=== PATIENT | male | born 1965 | race Caucasian/White ===

== ENCOUNTER → 2024-01-28 19:37 | Outpatient (REF) | payer OTHER, SELFPAY | LOC: MRI 3T 19:37 | PROVIDERS: ATTENDING PHYSICIAN Specialist; FAMILY PHYSICIAN Internal Medicine Geriatric Medicine | DX: E27.8 Other specified disorders of adrenal gland (principal); N28.89 Other specified disorders of kidney and ureter | CPT/HCPCS: 74183; A9575 ==

== ENCOUNTER 2025-07-22 03:29 | Emergency (ER) | payer OTHER, SELFPAY ==
[2025-07-22 03:34] VITALS: BP 162/94
[2025-07-22 03:50] VITALS: BMI 37.3
[2025-07-22 05:17] LABS: Hematocrit 58.6 % (39.0-52.0); Hemoglobin 18.6 g/dL (13.0-18.0); Mean Corp Hgb Conc. 31.7 g/dL (33.0-37.0); Mean Corpuscular Volume 88.4 fL (80.0-94.0); Nucleated Red Blood Cells % 0 % (-); Platelet Count 175 10^3/uL (130-400); Red Cell Dist. Width 16.8 % (11.5-14.5)
--- NOTE | 2025-07-22 05:17 | ED.GENMED ---
History of Present Illness
<Flaquita Rodriguez PA-C - Last Filed: 07/22/25 23:06>
General
Chief Complaint: Throat Problem
Source: patient
Exam Limitations: none
Time Seen by Provider: 07/22/25 04:22
Nursing documentation reviewed up to this point in time: agreed with
History of Present Illness
History of Present Illness:
60-year-old male with a past medical history of A-fib on Eliquis, history of dilated aortic root, hypertension, hyperlipidemia, presents to the ER today with concerns of upper respiratory and cold-like symptoms for the past few days. The patient
was taking NyQuil initially with some relief. What prompted his visit today was that at around 2:30 AM, he woke up with a sensation of his throat closing and felt like he had a lump in his throat. He had trouble speaking at the time and trouble
swallowing. He reported also that he had pain at the time. He subsequently took Tylenol and Benadryl and started to feel better but reports that lump sensation in the throat persist and he has a persistent sensation of fullness. No shortness of
breath or chest pain at this time. He is able to tolerate oral intake at this time. He denies any exposure to allergens or any new medications. He denies any swelling of the lips or tongue. He denies any sick contacts. He denies any fevers at
home. He had prior tonsillectomy as a child. He also admits to postnasal drip and occasional coughing up of mucus. He is reportedly up to date on his vaccinations other than this year's flu shot.
Past History
<Flaquita Rodriguez PA-C - Last Filed: 07/22/25 23:06>
Past History
ED Past Medical History: Arrthythmia, HTN, Hypercholesterolemia and Other (gout)
Social History
Tobacco: Non-smoker
Personal:
Review of Systems
<Flaquita Rdoriguez PA-C - Last Filed: 07/22/25 23:06>
Review of Systems
All Other Systems: ROS reviewed and negative except as documented in HPI and ROS
Phy Exam
<Flaquita Rodriguez PA-C - Last Filed: 07/22/25 23:06>
Physical Exam
Physical Exam:
General: Patient is well appearing and in no acute distress; non-toxic
Skin: Warm and dry, no rashes or lesions
Head: Normocephalic, atraumatic
Eyes: Sclera non-icteric. EOMs intact.
Mouth: Uvula midline, posterior pharyngeal erythema and swelling, R>L. Surgically absent tonsils.
No trismus.
Cardiac: Regular rate and rhythm, no murmurs
Peripheral Vascular: No lower extremity swelling or edema, brisk capillary refill
Pulm: Normal respiratory effort, scattered rhonchi heard bilaterally
Neuro: CN II-XII intact, no focal neurologic deficits.
Psychiatric: Appropriate mood and affect.
Course
<MARIELLA Bynum Last Filed: 07/22/25 23:06>
Orders/Labs/Results
Orders:
Orders
07/22/25 05:02
CR Chest - 2 Views Urgent
Comment:
Reason For Exam: COUGH, intermittent sob
07/22/25 05:05
COVID-19 Antigen Urgent
Source: Nasal Swab
Complete Blood Count/With Diff Urgent
Comprehensive Metabolic Panel Urgent
Influenza A+B Rapid Molecular Urgent
TOVA Source: Nasal Swab
Specimen Description:
07/22/25 05:39
Rapid Strep Group A Urgent
TOVA Source: Throat/Pharynx
Specimen Description:
Date Specimen was Collected: 07/22/25
Time Specimen was Collected: 05:31
07/22/25 06:12
CT Neck With Iv Contrast Urgent
Comment:
Reason For Exam: right pharyngeal fullness,dysphagia
07/22/25 06:26
Dexamethasone Sod Phosphate [Decadron] 10 mg IV NOW STA
Abnormal Lab Results
07/22/25
05:05
RBC 6.63 H 10^6/uL
(4.70-6.10)
Hgb 18.6 H g/dL
(13.0-18.0)
Hct 58.6 H %
(39.0-52.0)
MCHC 31.7 L g/dL
(33.0-37.0)
RDW 16.8 H %
(11.5-14.5)
Absolute Neuts (auto) 6.6 H 10^3/uL
(1.4-6.5)
Absolute Monos (auto) 0.9 H 10^3/uL
(0.1-0.6)
Lymphocytes % 20.0 L %
(20.5-51.1)
BUN 28 H mg/dl
(9-20)
Creatinine 1.5 H mg/dL
(0.7-1.3)
Glucose 109 H mg/dl
(70-99)
07/22/25 05:05
07/22/25 05:05
Vital Signs
Initial and Last Documented VS:
Initial Vital Signs
Temp Pulse Resp BP Pulse Ox
97.6 F 64 24 162/94 95
07/22/25 03:34 07/22/25 03:34 07/22/25 03:34 07/22/25 03:34 07/22/25 03:34
Last Documented Vital Signs
Temp Pulse Resp BP Pulse Ox
97.6 F 61 15 129/76 98
07/22/25 03:34 07/22/25 06:54 07/22/25 06:54 07/22/25 06:54 07/22/25 06:54
<Sharon Larsen PA-C - Last Filed: 07/22/25 09:51>
Orders/Labs/Results
Orders:
Orders
07/22/25 05:02
CR Chest - 2 Views Urgent
Comment:
Reason For Exam: COUGH, intermittent sob
07/22/25 05:05
COVID-19 Antigen Urgent
Source: Nasal Swab
Complete Blood Count/With Diff Urgent
Comprehensive Metabolic Panel Urgent
Influenza A+B Rapid Molecular Urgent
TOVA Source: Nasal Swab
Specimen Description:
07/22/25 05:39
Rapid Strep Group A Urgent
TOVA Source: Throat/Pharynx
Specimen Description:
Date Specimen was Collected: 07/22/25
Time Specimen was Collected: 05:31
07/22/25 06:12
CT Neck With Iv Contrast Urgent
Comment:
Reason For Exam: right pharyngeal fullness,dysphagia
07/22/25 06:26
Dexamethasone Sod Phosphate [Decadron] 10 mg IV NOW STA
Abnormal Lab Results
07/22/25
05:05
RBC 6.63 H 10^6/uL
(4.70-6.10)
Hgb 18.6 H g/dL
(13.0-18.0)
Hct 58.6 H %
(39.0-52.0)
MCHC 31.7 L g/dL
(33.0-37.0)
RDW 16.8 H %
(11.5-14.5)
Absolute Neuts (auto) 6.6 H 10^3/uL
(1.4-6.5)
Absolute Monos (auto) 0.9 H 10^3/uL
(0.1-0.6)
Lymphocytes % 20.0 L %
(20.5-51.1)
BUN 28 H mg/dl
(9-20)
Creatinine 1.5 H mg/dL
(0.7-1.3)
Glucose 109 H mg/dl
(70-99)
07/22/25 05:05
07/22/25 05:05
Vital Signs
Initial and Last Documented VS:
Initial Vital Signs
Temp Pulse Resp BP Pulse Ox
97.6 F 64 24 162/94 95
07/22/25 03:34 07/22/25 03:34 07/22/25 03:34 07/22/25 03:34 07/22/25 03:34
Last Documented Vital Signs
Temp Pulse Resp BP Pulse Ox
97.6 F 61 15 129/76 98
07/22/25 03:34 07/22/25 06:54 07/22/25 06:54 07/22/25 06:54 07/22/25 06:54
<Flaquita Rodriguez PA-C - Last Filed: 07/22/25 23:06>
MDM/Problems Addressed
Differential Diagnosis Includes:
ddx include viral syndrome, pneumonia, viral pharyngitis, strep pharyngitis, peritonsillar abscess, retropharyngeal abscess
MDM/Problems Addressed:
60-year-old male with a past medical history of A-fib on Eliquis, history of dilated aortic root, hypertension, hyperlipidemia, presents to the ER today with concerns of upper respiratory and cold-like symptoms for the past few days. He was awoken
today with sensation of fullness in his throat and sensation of swelling. Since has improved but sensation of fullness persists. On exam he has pharyngeal swelling right side more swollen than the left however his uvula is midline, no trismus no
hoarseness to the voice, no anterior cervical lymphadenopathy.Patient seen in conjunction with my ED attending. Will obtain CT scan to rule out abscess collection. Labs reviewed, no leukocytosis noted. Elevated BUN to creatinine ratio noted, will
encourage hydration there is a Decadron to the IV given. Case signed out to Cyndy WOLFF pending CT scan results. Anticipate discharge. Discussed steroid course as an outpatient.
Chronic conditions affecting care:
afib, htn, hlp
<Flaquita Rodriguez PA-C - Last Filed: 07/22/25 23:06>
*Pulse Oximetry
SaO2: 95
Oxygen Mode of Delivery: Room air
Patient hypoxic: no
*Critical Care Note
Total Time (30-74mins, 75-104mins- exclusive of procedures): Not Applicable
<Sharon Larsen PA-C - Last Filed: 07/22/25 09:51>
Update Note
Update Note:
07/22/2025 0735 AM
Received patient in signout pending CT of the neck with IV contrast for
Pharyngitis
His CT of his neck showed mild pharyngitis/tonsillitis without any significant narrowing of his airway or other deep space infections. Patient feels much better after the IV steroids. Will discharge home, likely viral. Follow-up with ENT
encouraged for persistent symptoms. Will hold on additional doses of steroids given the fact that the patient is on Eliquis
ED Attending Note
<Flaquita Rodriguez PA-C - Last Filed: 07/22/25 23:06>
-
Portions of this chart may have been created with voice recognition software.� Occasional wrong word or��sound alike� substitutions may have occurred due to the inherent limitations of voice recognition software.
Discharge Plan
Departure
Patient Disposition: Home (Routine Discharge)
Date of Disposition: 07/22/25
Time of Disposition: 08:19
Patient with high blood pressure during this ER visit?: Yes
Condition: Good
Discharge Problem:
Acute pharyngitis, Acute viral syndrome
Instructions: Sore throat in adults - ED (DC), BLOOD PRESSURE
Prescriptions:
New
prednisone 20 mg tablet
40 mg PO DAILY 5 Days Qty: 10 0RF
No Action
carvedilol 6.25 MG tablet
6.25 mg PO BID
diltiazem HCl [Tiadylt ER] 360 MG capsule,extended release 24 hr
360 mg PO DAILY
allopurinol 100 MG tablet
100 mg PO DAILY
aspirin 81 MG tablet,chewable
81 mg PO DAILY
rosuvastatin 20 MG tablet
20 mg PO DAILY
Benazepril Hcl 40 MG Tablet
40 mg PO DAILY
Semaglutide [Wegovy] 2.4 MG/0.75 ML Pen.Injctr
2.4 mg PO WEEKLY
apixaban [Eliquis] 5 MG tablet
5 mg PO BID Qty: 60 0RF
prednisone 20 mg tablet
60 mg PO DAILY 5 Days Qty: 15 0RF
Referrals:
Shar Higginbotham MD [Active, Otology] - Call in 1-3 days for appt
UNKNOWN,NO INTERVIEW [Family Provider]
Activity Restrictions/Additional Instructions:
YOUR CAT SCAN SHOWS MILD TONSILLITIS/PHARNGITIS WHICH IS LIKELY VIRAL
NO DEEP SPACE INFECTION OR MASSES.
YOU WERE GIVEN A DOSE OF STEROIDS TO HELP WITH INFLAMMATION
OTHERWISE TAKE OVER THE COUNTER MEDICATION TO HELP
DRINK FLUIDS
Please call the attached number to schedule a appointment with ENT. Please follow-up with your primary care provider.
PLEASE RETURN TO THE ER SHOULD YOU DEVELOP SHORTNESS OF BREATH, CHEST PAIN, INABILITY TO TOLERATE ORAL INTAKE, SWELLING OR PAIN IN THE NECK, DIZZINESS, LIGHTHEADEDNESS, OR ANY OTHER SIGNS OR SYMPTOMS WORRISOME TO YOU.
Interventions
Interventions:
*Risk Screen - Suicide Last Done: 07/22/25 03:34
*General Assessment Last Done: 07/22/25 03:34
*Neglect/Abuse Screening Last Done: 07/22/25 03:34
*ED- Fall Risk Assessment Last Done: 07/22/25 03:34
*ED COVID-19 Vaccine History Last Done: 07/22/25 03:34
*ED Influenza Vaccine History Last Done: 07/22/25 03:34
*Nursing Disposition Last Done: 07/22/25 08:39
ED-EENT Assessment Last Done: 07/22/25 06:54
ED- Pulmonary Assessment Last Done: 07/22/25 06:54
Discharge Date and Time
Discharge Date/Time: 07/22/25 08:39
Print Language: [id number]
[2025-07-22 05:35] LABS: COVID-19 Antigen Negative (Negative)
[2025-07-22 05:58] LABS: ALT (SGPT) 27 U/L (0-50); AST (SGOT) 27 U/L (17-59); Albumin 4.9 g/dl (3.5-5.0); Alkaline Phosphatase 62 U/L (38-126); Blood Urea Nitrogen 28 mg/dl (9-20); Calcium 9.8 mg/dl (8.4-10.2); Carbon Dioxide 28 mmol/L (22-30); Chloride 104 mmol/L (98-107); Estimated Creatinine Clearance 66 ml/min; Glucose 109 mg/dl (70-99); Potassium 5.0 mmol/L (3.5-5.1); Sodium 140 mmol/L (135-145); Total Protein 7.8 g/dl (6.3-8.2); eGFR 52.31
[2025-07-22] MEDS: DECADRON 10 MG IV (06:33)
[2025-07-22 06:54] VITALS: BP 129/76
== END 2025-07-22 08:39 | disposition home or self-care (01) ==
LOC: EMR 03:29
PROVIDERS: Physician Assistant; EMERGENCY PHYSICIAN Student in an Organized Health Care Education/Training Program
DX: J02.9 Acute pharyngitis, unspecified (principal); B34.9 Viral infection, unspecified; E78.00 Pure hypercholesterolemia, unspecified; I10 Essential (primary) hypertension; I48.91 Unspecified atrial fibrillation; Z79.01 Long term (current) use of anticoagulants; Z11.52 Encounter for screening for COVID-19
CPT/HCPCS: 96374; 99284; 70491; 71046; 80053; 85025; 87070; 87502; 87811; 87880; Q9967